=== PATIENT | male | born 1950 | race Caucasian/White ===

== ENCOUNTER → 2016-12-21 | Outpatient (CLI) | payer BC ==
[~2016-12-21] MED LIST: ADD/10 PO; CALC-51 PO; CHOL100027 PO; ENAL5TAB PO; OXYC-164 PO; TRAM-453 PO
--- NOTE | 2016-12-21 11:52 | DIAGNOSTIC IMAGING REPORT ---
RENAL ULTRASOUND HISTORY: R32 Urinary incontinence COMPARISON: Abdomen and pelvis CT 04/19/2010. FINDINGS: Right kidney: 11.4 cm. No hydronephrosis. Normal corticomedullary differentiation and cortical thickness. Left kidney: 11.6 cm. Mild left hydronephrosis. This remains unchanged. Normal corticomedullary differentiation and cortical thickness. Bladder: Significant bladder distention. The prevoid volume was 1100 cc. The post void volume was 800 cc. There is a slightly irregular/trabeculated wall. IMPRESSION: 1. No significant change compared to the 04/19/[address] 2. Distended bladder with a postvoid volume of 800 cc. The bladder wall is slightly irregular/trabeculated. 3. Persistent mild left hydronephrosis. Electronically signed by: Mohamud Maxwell M.D. 12/21/2016 11:50 AM Dictated Date/Time: 12/21/2016 11:48 AM
--- NOTE | 2016-12-21 15:15 | DIAGNOSTIC IMAGING REPORT ---
KUB CLINICAL HISTORY: Urinary incontinence. COMPARISON STUDY: CT of the abdomen and pelvis April 19, 2010. FINDINGS: The bowel gas pattern is normal. There is a moderate amount of stool within the colon. No urinary calculi are identified although the renal shadows are partially obscured by stool. IMPRESSION: 1. No urinary calculi identified although the renal shadows are partially obscured by stool. 2. No bowel obstruction. 3. Moderate amount of stool within the colon. Electronically signed by: Satinder Bernal M.D. 12/21/2016 3:13 PM Dictated Date/Time: 12/21/2016 3:12 PM
[2016-12-21 15:55] LABS: BLOOD UREA NITROGEN 15 mg/dl (7-18); BUN/CREATININE RATIO 13.7 (10-20); CALCIUM 9.5 mg/dl (8.5-10.1); CARBON DIOXIDE 28 mmol/L (21-32); CHLORIDE 104 mmol/L (98-107); GLUCOSE 68 mg/dl (70-99); POTASSIUM 4.8 mmol/L (3.5-5.1); SODIUM 141 mmol/L (136-145)
[2016-12-21 15:59] LABS: PROSTATE SPECIFIC ANTIGEN 0.614 ng/ml (0.000-4.000)
== END | disposition home or self-care (01) ==
LOC: C.ULTR 10:43
PROVIDERS: ATTEND Urology
DX: G35 Multiple sclerosis (principal); R32 Unspecified urinary incontinence

== ENCOUNTER → 2016-12-25 | Outpatient (CLI) | payer BC | END | disposition home or self-care (01) | LOC: C.LAB 18:51 | PROVIDERS: ATTEND Nurse Practitioner Family | DX: R33.9 Retention of urine, unspecified (principal) ==

== ENCOUNTER → 2017-01-01 | Outpatient (CLI) | payer BC | END | disposition home or self-care (01) | LOC: C.LABSPEC 17:15 | PROVIDERS: ATTEND Urology | DX: R31.0 Gross hematuria (principal) ==

== ENCOUNTER → 2017-04-02 | Outpatient (CLI) | payer BC ==
[2017-04-02 17:02] LABS: ALT/SGPT 28 U/L (12-78); AST/SGOT 19 U/L (15-37); BLOOD UREA NITROGEN 16 mg/dl (7-18); BUN/CREATININE RATIO 16.3 (10-20); CALCIUM 9.2 mg/dl (8.5-10.1); CARBON DIOXIDE 29 mmol/L (21-32); CHLORIDE 103 mmol/L (98-107); CREATININE 0.99 mg/dl (0.60-1.40); GLUCOSE 70 mg/dl (70-99); SODIUM 139 mmol/L (136-145)
[2017-04-02 17:13] LABS: ALB/GLOB RATIO 1.1 (0.9-2); ALKALINE PHOSPHATASE 74 U/L (45-117)
[2017-04-02 18:01] LABS: BASO % 0.1 %; BASO ABS # 0.01 K/uL (0-0.2); COMPLETE YES; EOS % 1.1 %; HEMATOCRIT 42.3 % (42-52); IG% 0.1 %; LYMPH % 48.3 %; LYMPH ABS # 4.12 K/uL (1.2-3.4); MEAN CELL VOLUME 93.4 fL (80-100); MEAN CORPUSCULAR HEMOGLOBIN 31.3 pg (25-34); MEAN CORPUSCULAR HGB CONC 33.6 g/dl (32-36); MEAN PLATELET VOLUME 9.7 fL (7.4-10.4); MONO % 10.3 %; NEUT % 40.1 %; PLATELET COUNT 268 K/uL (130-400); RED BLOOD COUNT 4.53 M/uL (4.7-6.1); WHITE BLOOD COUNT 8.53 K/uL (4.8-10.8)
== END | disposition home or self-care (01) ==
LOC: C.LAB1850 15:57
PROVIDERS: ATTEND Psychiatry & Neurology Neurology
DX: G35 Multiple sclerosis (principal); E55.9 Vitamin D deficiency, unspecified; E53.8 Deficiency of other specified B group vitamins

== ENCOUNTER → 2017-07-09 | Outpatient (CLI) | payer BC | END | disposition home or self-care (01) | LOC: C.LABSPEC 17:18 | PROVIDERS: ATTEND Urology | DX: R33.9 Retention of urine, unspecified (principal) ==

== ENCOUNTER → 2017-10-26 | Outpatient (CLI) | payer BC ==
[2017-10-26 15:43] LABS: BLOOD UREA NITROGEN 16 mg/dl (7-18); CREATININE 1.12 mg/dl (0.60-1.40)
== END | disposition home or self-care (01) ==
LOC: C.LAB 15:08
PROVIDERS: ATTEND Psychiatry & Neurology Neurology
DX: Z00.00 Encounter for general adult medical examination without abnormal findings (principal)

== ENCOUNTER → 2017-10-28 | Outpatient (CLI) | payer BC ==
[~2017-10-28] MED LIST changes: +GADAVIST IV PRN
--- NOTE | 2017-10-28 12:01 | DIAGNOSTIC IMAGING REPORT ---
BRAIN COMBO FOR MS HISTORY: Demyelinating disorder. Abnormal MRI. G35 Multiple [id number] Neurogenic [id number] Spastic gait TECHNIQUE: Multiplanar multisequence MRI of the brain was performed both before and after the intravenous administration of contrast. COMPARISON STUDY: 03/16/2015 FINDINGS: There are no areas of restricted diffusion to suggest acute infarction. The midline structures are intact. The paranasal sinuses are clear. The mastoid air cells are clear. The ventricles and sulci are within normal limits for age. There is no mass, hematoma, midline shift. The major vascular flow-voids at the skull base are well maintained. Postcontrast sequences show no areas of abnormal enhancement. Several small foci of increased signal inferior right frontal lobe as well as left paraventricular region. These findings remain unchanged in the prior exam. No evidence for abnormal postcontrast enhancement. IMPRESSION: 1. Stable exam with no change from the prior study dated 03/16/2015. 2. No evidence for abnormal postcontrast enhancement. 3. Several small foci of increased signal throughout both cerebral hemispheres unchanged from at least 2 prior MRI studies. The above report was generated using voice recognition software. It may contain grammatical, syntax or spelling errors. Electronically signed by: Kelvin Mansfield M.D. 10/28/2017 11:59 AM Dictated Date/Time: 10/28/2017 11:55 AM
--- NOTE | 2017-10-28 13:27 | DIAGNOSTIC IMAGING REPORT ---
MRI OF THE CERVICAL SPINE COMBO CLINICAL HISTORY: Multiple sclerosis. Neurogenic bladder. Spastic gait. COMPARISON STUDY: Radiographs of the cervical spine dated 07/26/2011. TECHNIQUE: MRI of the cervical spine is performed utilizing various T1 and T2-weighted sequences in the axial and sagittal planes. Contrast-enhanced sequences are acquired following the IV administration of 8.3 cc of Gadavist. FINDINGS: Cervical spine: Vertebral body height is maintained throughout the cervical spine. There is minimal retrolisthesis at C5-C6. Alignment is otherwise maintained. Hyperlordosis is observed. Mild chronic superior endplate compression deformities are suggested involving T3 and T4. No destructive bony lesion is seen. A tiny hemangioma suggested in the body of T3. The atlantodental articulation appears maintained. The spinous processes appear intact. No destructive bony lesion is identified. Chronic degenerative endplate change and mild endplate edema is seen at C5-C6. Intervertebral discs: Degenerative disc desiccation is seen throughout the cervical spine. Severe loss of height is noted at C5-C6. Only mild loss of height is seen at the remaining cervical levels. Spinal cord: The cervical spinal cord is normal in morphology. There is a 10 mm T2 hyperintense plaque identified within the left aspect of the cord at C3-C4, best seen on axial STIR image 10. An additional 10 mm lesion is suggested within the right aspect of the cervical cord at C3-C4 on image 8. There is an approximately 2.4 cm region of increased T2 signal suggested within the central cord at the C2-C3 level on sagittal image 9. No abnormal cord enhancement is identified on the postcontrast images. C2-C3: Facet arthropathy is of no consequence. The central canal and neural foramina are patent. C3-C4: A posterior disc osteophyte complex minimally effaces the ventral subarachnoid space. Uncovertebral and facet arthropathy cause mild to moderate right and minimal left neural foraminal stenosis. C4-C5: A posterior disc osteophyte complex eccentric to the left effaces the ventral cord. Uncovertebral and facet arthropathy cause moderate to severe right and mild left neural foraminal stenosis. C5-C6: A posterior disc osteophyte complex effaces the ventral cord. The minimum AP canal diameter at this level measures 7 mm. Uncovertebral and facet arthropathy cause severe bilateral neural foraminal stenosis. C6-C7: A posterior disc bulge abuts the ventral cord. Uncovertebral and facet arthropathy cause moderate bilateral neural foraminal stenosis. C7-T1: Unremarkable. Soft tissues: The prevertebral and paraspinous soft tissues are within normal limits. Brain parenchyma: The partially visualized brain parenchyma at the skull base is normal in appearance. IMPRESSION: 1. There are foci of abnormal signal within the upper to mid cervical cord as above. This would be consistent with the reported clinical history of multiple sclerosis. No abnormal enhancement is identified to suggest active demyelination. 2. Multilevel cervical spondylosis as above, greatest at C4-C5 and C5-C6. See discussion for detailed level by level analysis. 3. No destructive osseous lesion is identified. Dictated: 10/28/2017 12:21 PM Transcribed: 10/28/2017 1:27 PM [email or web address] Electronically signed by: Ki Miranda M.D. 10/28/2017 1:29 PM Dictated Date/Time: 10/28/2017 12:21 PM
== END | disposition home or self-care (01) ==
LOC: C.MRIBC 09:40
PROVIDERS: ATTEND Psychiatry & Neurology Neurology
DX: G35 Multiple sclerosis (principal); N31.9 Neuromuscular dysfunction of bladder, unspecified; R26.1 Paralytic gait; M47.812 Spondylosis without myelopathy or radiculopathy, cervical region

== ENCOUNTER → 2017-11-07 | Outpatient (CLI) | payer BC ==
[~2017-11-07] MED LIST changes: -GADAVIST IV PRN
--- NOTE | 2017-11-07 07:40 | DIAGNOSTIC IMAGING REPORT ---
LUMBAR SPINE W/O CONTRAST CLINICAL HISTORY: 66 years-old Male with M54.16 Lumbar radiculopathyright greater than left L4 radiculopa. History of multiple sclerosis. COMPARISON: CT cervical spine 10/28/2017, lumbar spine MR 09/03/2011. TECHNIQUE: Multiplanar, multi sequence MRI of the lumbar spine was performed without intravenous contrast. FINDINGS: The large field view senior patient account representative localizer images demonstrate no gross abnormality of the imaged abdomen, pelvis or paraspinal structures. Mild wall thickening of the urinary bladder is suggested. 40% anterior endplate compression deformity of T12 with moderate superior endplate Schmorl's node appears chronic, however is new from comparison study 09/03/2011. No retropulsion or severe central canal narrowing. Fragmentation involving the anterosuperior endplate L5 is unchanged and may reflect a limbus vertebra. No acute fracture, subluxation, focal bone marrow or soft tissue edema. There are two subtle foci of slightly increased T2 signal involving the distal portion of the central thoracic spinal cord lesion measuring approximately 2 mm as seen on image 6 of series 2. Conus medullaris terminates at the L1 level. At T11-T12 on the sagittal images alone, there is moderate intervertebral disc space narrowing with posterior spondylitic spurring and broad-based posterior disc bulge which causes mild central canal narrowing, slightly worsened from comparison. T12-L1: Moderate facet arthrosis with ligamentum flavum thickening and minimal posterior spondylitic spurring. No central canal or foraminal narrowing. Unchanged. L1-L2: Moderate facet arthrosis and ligament of flavum thickening with minimal posterior spondylitic spurring. No central canal or foraminal narrowing. Unchanged. L2-L3: Mild intervertebral disc space narrowing with disc desiccation, broad-based posterior disc bulge, posterior spondylitic spurring, moderate facet arthrosis and ligamentum flavum thickening. Flattening of the ventral thecal sac with mild central canal stenosis. There is mild inferior foraminal narrowing bilaterally. No significant change from comparison. L3-L4: Mild intervertebral disc space narrowing with disc desiccation, moderate spondylitic spurring, broad-based posterior disc bulge and moderate to severe facet arthrosis with ligamentum flavum thickening. Changes cause mild to moderate central canal, moderate right and mild to moderate left foraminal narrowing. Mild progression of the foraminal stenosis. L4-L5: At least moderate intervertebral disc space narrowing with disc desiccation, circumferential annular disc bulge, posterior spondylitic spurring with moderate facet arthrosis and ligamentum flavum thickening. Flattening of the ventral thecal sac without significant central canal stenosis. Moderate to severe right and moderate left foraminal narrowing. No significant change from comparison. L5-S1: Moderate intervertebral disc space narrowing with circumferential annular disc bulge, posterior spondylitic spurring and unchanged 4 mm anterolisthesis L4 on L5. Moderate facet arthrosis. There is moderate bilateral foraminal narrowing which is unchanged. IMPRESSION: 1. 40% anterior endplate compression deformity of T12 with moderate superior endplate Schmorl's node appears chronic, however is new from comparison study dated 09/03/2011. No significant retropulsion. 2. At L3-L4, disc space narrowing with circumferential annular disc bulge, spondylitic spurring, facet arthrosis and ligament of flavum thickening causes mild to moderate central canal, severe right and moderate left foraminal narrowing, slightly progressed from comparison. 3. At L4-L5, discogenic degenerative changes and facet arthrosis causes moderate to severe right and moderate left foraminal narrowing. 4. Two subtle foci of increased T2 signal involving the central distal thoracic spinal cord measuring up to 2 mm likely correlate with the patient's clinical history of multiple sclerosis. 5. Suggestion of mild urinary bladder wall thickening. Correlate with urinalysis. The above report was generated using voice recognition software. It may contain grammatical, syntax or spelling errors. Electronically signed by: Jeremiah Luu M.D. 11/07/2017 7:39 AM Dictated Date/Time: 11/07/2017 7:21 AM
== END | disposition home or self-care (01) ==
LOC: C.MRI 06:20
PROVIDERS: ATTEND Psychiatry & Neurology Neurology
DX: M54.16 Radiculopathy, lumbar region (principal); M47.894 Other spondylosis, thoracic region; G35 Multiple sclerosis

== ENCOUNTER → 2018-06-26 | Outpatient (CLI) | payer BC ==
[2018-06-26 16:05] LABS: ALBUMIN 4.1 gm/dl (3.4-5.0); ALKALINE PHOSPHATASE 73 U/L (45-117); ALT/SGPT 23 U/L (12-78); AST/SGOT 18 U/L (15-37); BLOOD UREA NITROGEN 14 mg/dl (7-18); CALCIUM 9.9 mg/dl (8.5-10.1); CARBON DIOXIDE 26 mmol/L (21-32); CHOLESTEROL 180 mg/dl (0-200); CREATININE 0.98 mg/dl (0.60-1.40); GLUCOSE 84 mg/dl (70-99); LDL CHOLESTEROL CALCULATED 96 mg/dl; SODIUM 138 mmol/L (136-145)
== END | disposition home or self-care (01) ==
LOC: C.LAB1850 14:06
PROVIDERS: ATTEND Internal Medicine
DX: M81.0 Age-related osteoporosis without current pathological fracture (principal); Z11.59 Encounter for screening for other viral diseases; I10 Essential (primary) hypertension